=== PATIENT | male | born 1970 | race Caucasian/White ===

== ENCOUNTER 2018-09-02 11:56 | Inpatient (IN) | payer BC ==
[2018-09-02] MEDS ORDERED: ZOLPIDEM 5 MG TAB PO (14:30)
[2018-09-02] MEDS: DOCUSATE SODIUM 100 MG CAP PO ×2 (14:30→20:01)
[2018-09-02] MEDS ORDERED: ONDANSETRON 4 MG INJ IV (14:30)
[2018-09-02] MEDS ORDERED: morphine 2 MG INJ IV (14:30)
[2018-09-02] MEDS ORDERED: LORAZEPAM 0.5 MG TAB PO (15:00)
[2018-09-02] MEDS: KETOROLAC 30 MG INJ IV (15:09)
[2018-09-02] MEDS: SOD CHLORIDE 0.9% 1,000 ML IV ×2 (15:09→19:31)
[2018-09-02 17:31] LABS: ADD UMIC YES; UR ASCORBIC ACID NEGATIVE (NEGATIVE); UR BILIRUBIN (Dip) NEGATIVE (NEGATIVE); UR BLOOD (Dip) 3+ mg/dL (NEGATIVE); UR CLARITY CLEAR (CLEAR); UR COLOR YELLOW (YELLOW); UR GLUCOSE (Dip) NEGATIVE (NEGATIVE); UR KETONES (Dip) NEGATIVE (NEGATIVE); UR LEUKOCYTE ESTERASE (Dip) NEGATIVE Leu/ul (NEGATIVE); UR MUCUS FEW /HPF (NONE SEEN); UR NITRITE (Dip) NEGATIVE (NEGATIVE); UR RBC 13 /HPF (0-5); UR SPECIFIC GRAVITY (Dip) 1.019 (1.003-1.030); UR TOTAL PROTEIN (Dip) NEGATIVE (NEGATIVE); UR UROBILINOGEN (Dip) NEGATIVE (NEGATIVE); UR WBC 3 /HPF (0-5)
[2018-09-02] MEDS: morphine 4 MG/ML VIAL IV (17:40)
[2018-09-02] MEDS ORDERED: morphine 4 MG/ML VIAL IV (18:30)
[2018-09-02 21:15] LABS: ADD MAN DIFF? NO
[2018-09-02 21:16] LABS: WHITE BLOOD COUNT 6.1 10^3/ul (4.8-10.8)
[2018-09-02 21:16] LABS: BASOPHILS % 0.2 % (0.0-2.0); EOSINOPHILS # 0.2 10^3/ul (0.0-0.5); EOSINOPHILS % 2.8 % (0.0-7.0); HEMATOCRIT 42.3 % (42.0-52.0); HEMOGLOBIN 14.6 g/dl (14.0-18.0); LYMPHOCYTES # 1.8 10^3/ul (0.8-2.9); LYMPHOCYTES % 28.9 % (15.0-51.0); MEAN CORPUSCULAR HEMOGLOBIN 28.6 pg (29.0-33.0); MEAN CORPUSCULAR HGB CONC 34.5 g/dl (32.0-37.0); MEAN CORPUSCULAR VOLUME 82.9 fl (82.0-101.0); MEAN PLATELET VOLUME 10.1 fl (7.4-10.4); MONOCYTE # 0.5 10^3/ul (0.3-0.9); MONOCYTES % 8.5 % (0.0-11.0); NEUTROPHIL # 3.6 10^3/ul (1.6-7.5); NEUTROPHILS % 59.4 % (39.0-77.0); PLATELET COUNT 158 10^3/UL (140-415); RED CELL DISTRIBUTION WIDTH 13.4 % (11.5-14.5)
[2018-09-02 21:35] LABS: INR 0.97
[2018-09-02 21:36] LABS: PARTIAL THROMBOPLASTIN TIME 26.4 Sec (23.0-35.0)
[2018-09-02 21:43] LABS: ALANINE AMINOTRANSFERASE 21 IU/L (13-69); ALBUMIN 3.5 g/dl (3.3-4.9); ALBUMIN/GLOBULIN RATIO 1.34; ALKALINE PHOSPHATASE 56 IU/L (42-121); ANION GAP 5 (5-13); ASPARTATE AMINO TRANSFERASE 20 IU/L (15-46); BILIRUBIN,INDIRECT 0.3 mg/dl (0-1.1); BILIRUBIN,TOTAL 0.3 mg/dl (0.2-1.3); BLOOD UREA NITROGEN 19 mg/dl (7-20); CALCIUM 8.8 mg/dl (8.4-10.2); CARBON DIOXIDE 26 mmol/L (21-31); CHLORIDE 106 mmol/L (97-110); CREATININE 1.83 mg/dl (0.61-1.24); Estimated GFR 40 mL/min (>60); GLUCOSE 94 mg/dl (70-220); POTASSIUM 3.7 mmol/L (3.5-5.1); SODIUM 137 mmol/L (135-144); TOTAL PROTEIN 6.1 g/dl (6.1-8.1)
[2018-09-03] MEDS: SOD CHLORIDE 0.9% 1,000 ML IV ×3 (00:37→22:32)
[2018-09-03] MEDS: morphine 4 MG/ML VIAL IV ×4 (03:04→21:58)
[2018-09-03 04:48] LABS: ADD MAN DIFF? NO
[2018-09-03 04:51] LABS: BASOPHILS % 0.3 % (0.0-2.0); EOSINOPHILS # 0.2 10^3/ul (0.0-0.5); HEMATOCRIT 41.3 % (42.0-52.0); HEMOGLOBIN 14.5 g/dl (14.0-18.0); LYMPHOCYTES # 1.5 10^3/ul (0.8-2.9); LYMPHOCYTES % 25.9 % (15.0-51.0); MEAN CORPUSCULAR HEMOGLOBIN 28.9 pg (29.0-33.0); MEAN CORPUSCULAR HGB CONC 35.1 g/dl (32.0-37.0); MEAN CORPUSCULAR VOLUME 82.4 fl (82.0-101.0); MEAN PLATELET VOLUME 10.2 fl (7.4-10.4); MONOCYTE # 0.5 10^3/ul (0.3-0.9); MONOCYTES % 8.6 % (0.0-11.0); NEUTROPHIL # 3.5 10^3/ul (1.6-7.5); NEUTROPHILS % 61.9 % (39.0-77.0); PLATELET COUNT 167 10^3/UL (140-415); RED BLOOD COUNT 5.01 10^6/ul (4.70-6.10); RED CELL DISTRIBUTION WIDTH 13.4 % (11.5-14.5)
[2018-09-03 04:51] LABS: WHITE BLOOD COUNT 5.7 10^3/ul (4.8-10.8)
[2018-09-03 05:01] LABS: HEMOGLOBIN A1C 5.4 % (0-5.9)
[2018-09-03 05:09] LABS: ANION GAP 8 (5-13); BLOOD UREA NITROGEN 19 mg/dl (7-20); CALCIUM 8.5 mg/dl (8.4-10.2); CARBON DIOXIDE 23 mmol/L (21-31); CHLORIDE 106 mmol/L (97-110); CREATININE 1.82 mg/dl (0.61-1.24); Estimated GFR 40 mL/min (>60); GLUCOSE 88 mg/dl (70-220); MAGNESIUM 1.8 mg/dl (1.7-2.5); POTASSIUM 3.9 mmol/L (3.5-5.1); SODIUM 137 mmol/L (135-144)
[2018-09-03] MEDS ORDERED: SEVOFLURANE 15 MIN (07:00)
[2018-09-03] MEDS ORDERED: EPHEDrine SULFATE 50 MG/5 ML SYG (07:00)
[2018-09-03] MEDS: DOCUSATE SODIUM 100 MG CAP PO ×2 (08:31→21:00)
[2018-09-03] MEDS: KETOROLAC 30 MG INJ IV (10:14)
[2018-09-03] MEDS ORDERED: MIDAZOLAM 1 MG/ML 2 ML INJ (18:14)
[2018-09-03] MEDS ORDERED: PROPOFOL 20 ML (18:14)
[2018-09-03] MEDS ORDERED: CEFAZOLIN 1 GM INJ (18:14)
[2018-09-03] MEDS ORDERED: HYDROmorphONE 1 MG/5 ML IV SYRINGE IV ×3 (18:30)
[2018-09-03] MEDS ORDERED: LABETALOL HCL 20MG INJ IV (18:30)
[2018-09-03] MEDS ORDERED: EPHEDrine SULFATE 50 MG/5 ML SYG IV (18:30)
[2018-09-03] MEDS ORDERED: METOCLOPRAMIDE 10 MG INJ IV (18:30)
[2018-09-03] MEDS ORDERED: DIPHENHYDRAMINE 50 MG INJ IV (18:30)
[2018-09-03] MEDS ORDERED: FENTAnyl 50 MCG/ML VIAL IV ×2 (18:30)
[2018-09-03] MEDS ORDERED: ONDANSETRON 4 MG INJ IV (18:30)
[2018-09-03] MEDS ORDERED: hydrALAzine 20 MG INJ IV (18:30)
[2018-09-03] MEDS ORDERED: MEPERIDINE 25 MG INJ IV (18:30)
[2018-09-03] MEDS ORDERED: PHENYLephrine (100 MCG/ML) 5ML SYG ×2 (18:47)
[2018-09-03] MEDS ORDERED: ONDANSETRON 4 MG INJ (18:50)
[2018-09-03] MEDS ORDERED: METOCLOPRAMIDE 10 MG INJ (18:51)
[2018-09-03] MEDS ORDERED: KETOROLAC 30 MG INJ (18:51)
[2018-09-03] MEDS ORDERED: DEXAMETHASONE 4 MG/ML 5 ML INJ (18:51)
[2018-09-03] MEDS ORDERED: HYDROCODONE/APAP (5/325) TAB PO (20:30)
[2018-09-03] MEDS: FENTAnyl 50 MCG/ML VIAL IV ×2 (21:12→22:28)
[2018-09-04] MEDS: SOD CHLORIDE 0.9% 1,000 ML IV (06:41)
[2018-09-04] MEDS: KETOROLAC 30 MG INJ IV (07:39)
[2018-09-04 08:44] LABS: ADD MAN DIFF? NO
[2018-09-04 08:47] LABS: WHITE BLOOD COUNT 5.7 10^3/ul (4.8-10.8)
[2018-09-04 08:47] LABS: ABNORMAL IP MESSAGE 1; BASOPHILS % 0.2 % (0.0-2.0); HEMATOCRIT 45.1 % (42.0-52.0); HEMOGLOBIN 15.8 g/dl (14.0-18.0); LYMPHOCYTES # 0.4 10^3/ul (0.8-2.9); LYMPHOCYTES % 7.8 % (15.0-51.0); MEAN CORPUSCULAR HEMOGLOBIN 28.5 pg (29.0-33.0); MEAN CORPUSCULAR VOLUME 81.3 fl (82.0-101.0); MEAN PLATELET VOLUME 10.5 fl (7.4-10.4); MONOCYTE # 0.1 10^3/ul (0.3-0.9); MONOCYTES % 1.2 % (0.0-11.0); NEUTROPHIL # 5.1 10^3/ul (1.6-7.5); NEUTROPHILS % 90.3 % (39.0-77.0); PLATELET COUNT 186 10^3/UL (140-415); POSITIVE DIFF @See below; RED BLOOD COUNT 5.55 10^6/ul (4.70-6.10); RED CELL DISTRIBUTION WIDTH 12.8 % (11.5-14.5)
[2018-09-04] MEDS: PIPER-TAZO 3.375 GM IV (PMX) 100 ML IVPB (09:08)
[2018-09-04] MEDS: ATENOLOL 50 MG TAB PO (09:09)
[2018-09-04] MEDS: DOCUSATE SODIUM 100 MG CAP PO (09:09)
[2018-09-04] MEDS: morphine 4 MG/ML VIAL IV (09:12)
[2018-09-04 09:35] LABS: ANION GAP 11 (5-13); BLOOD UREA NITROGEN 15 mg/dl (7-20); CARBON DIOXIDE 22 mmol/L (21-31); CHLORIDE 105 mmol/L (97-110); CREATININE 1.09 mg/dl (0.61-1.24); Estimated GFR > 60 mL/min (>60); GLUCOSE 187 mg/dl (70-220); MAGNESIUM 1.9 mg/dl (1.7-2.5); POTASSIUM 4.3 mmol/L (3.5-5.1); SODIUM 138 mmol/L (135-144)
== END 2018-09-04 14:13 | disposition home or self-care (01) | DRG 661 ==
LOC: MS1 11:56
PROC: 0TCB8ZZ Extirpation of Matter from Bladder, Via Natural or Artificial Opening Endoscopic (ICD-10-PCS; principal; 2018-09-03 17:30)
PROC: 0T768DZ Dilation of Right Ureter with Intraluminal Device, Via Natural or Artificial Opening Endoscopic (ICD-10-PCS; 2018-09-03 17:30)
PROC: 0TC68ZZ Extirpation of Matter from Right Ureter, Via Natural or Artificial Opening Endoscopic (ICD-10-PCS; 2018-09-03 17:30)
DX: N13.6 Pyonephrosis (principal); N17.9 Acute kidney failure, unspecified; B95.0 Streptococcus, group A, as the cause of diseases classified elsewhere; I10 Essential (primary) hypertension; F17.210 Nicotine dependence, cigarettes, uncomplicated; Z87.442 Personal history of urinary calculi
CPT/HCPCS: 71045; 74018; 74430; 80048; 80053; 81001; 83036; 83735; 85025; 85610; 85730; 87081; 87086; 88300; 93005